=== PATIENT | male | born 1990 | race Caucasian/White ===

== ENCOUNTER 2017-06-04 13:33 | Emergency (ER) | payer BC ==
[~2017-06-04] VITALS: Ht 185.4 cm; Wt 89.0 kg
[~2017-06-04 13:33] MED LIST: ISOT40CA8 PO
[2017-06-04 13:37] VITALS: TEMP 36.8; Ht 185.4 cm; Wt 89.0 kg
--- NOTE | 2017-06-04 14:27 | DIAGNOSTIC IMAGING REPORT ---
CT OF THE ABDOMEN AND PELVIS WITHOUT CONTRAST CLINICAL HISTORY: Left flank pain. COMPARISON STUDY: KUB April 05, 2015 TECHNIQUE: Axial images of the abdomen and pelvis were obtained without IV contrast. Images were reviewed in the axial, sagittal, and coronal planes. A dose lowering technique was utilized adhering to the principles of ALARA. FINDINGS: Incidental note is made of pectus excavatum. A 5 mm proximal left ureteral calculus results in mild left hydronephrosis. Right kidney is malrotated. There is no right hydronephrosis. No additional urinary calculi are identified. A small gallstone is noted within the gallbladder without evidence for acute cholecystitis. There is no peripancreatic infiltration. Caliber of small and large bowel is normal. There is no ascites. The appendix is normal. No suspicious osseous lesion is identified. IMPRESSION: 1. 5 mm proximal left ureteral calculus which results in mild left hydronephrosis. 2. Cholelithiasis. Electronically signed by: Micah Barboza M.D. 06/04/2017 2:26 PM Dictated Date/Time: 06/04/2017 2:22 PM
[2017-06-04 14:32] LABS: BASO % 0.7 %; BASO ABS # 0.03 K/uL (0-0.2); COMPLETE YES; EOS % 1.4 %; HEMATOCRIT 45.1 % (42-52); LYMPH % 27.8 %; LYMPH ABS # 1.22 K/uL (1.2-3.4); MEAN CORPUSCULAR HEMOGLOBIN 32.6 pg (25-34); MEAN PLATELET VOLUME 9.4 fL (7.4-10.4); MONO % 12.3 %; NEUT % 57.8 %; PLATELET COUNT 205 K/uL (130-400); RED BLOOD COUNT 4.85 M/uL (4.7-6.1); WHITE BLOOD COUNT 4.39 K/uL (4.8-10.8)
[2017-06-04 14:33] LABS: URINE APPEARANCE CLOUDY (CLEAR); URINE BILIRUBIN NEG (NEG); URINE COLOR YELLOW; URINE EPITHELIAL CELL AUTO 0-5 /lpf (0-5); URINE NITRITE NEG (NEG); URINE SPECIFIC GRAVITY 1.024 (1.000-1.030); UROBILINOGEN NEG (NEG); ZZUR CULT IF INDIC CLEAN CATCH NO
[2017-06-04 14:35] LABS: MANUAL MICROSCOPIC REQUIRED? NO; REVIEW REQ? NO
[2017-06-04 14:50] LABS: BUN/CREATININE RATIO 14.2 (10-20); CALCIUM 9.3 mg/dl (8.5-10.1); CREATININE 1.01 mg/dl (0.60-1.40); POTASSIUM 3.8 mmol/L (3.5-5.1)
[2017-06-04] MEDS ORDERED: TAMS0.4C38 PO (15:13)
[2017-06-04] MEDS ORDERED: OXYC1TAB3 PO (15:13)
[2017-06-04 15:35] VITALS: BP 132/66; PULSE 68; O2SAT 98
--- NOTE | 2017-06-04 19:37 | EMERGENCY ROOM VISIT NOTE ---
History Report prepared by Rola: Flora Roman Under the Supervision of: Dr. Oscar Solis D.O. First contact with patient: 13:39 Chief Complaint: BACK PAIN Stated Complaint: BACK/KIDNEY PAIN History of Present Illness The patient is a 27 year old male who presents to the Emergency Room with complaints of persistent left lower back pain starting 6 days ago. The patient had a kidney stone 2 years ago and states that this pain feels like his previous kidney stone. The pain started 6 days ago and was intermittent at first. At 1100 today, it worsened significantly and started moving into his groin. Around 1300, the pain was unbearable and he decided to leave work to come to the ED. The pain is currently somewhat improved. It does not change with movement. He denies any groin swelling, urinary symptoms, nausea, vomiting , diarrhea, weakness, numbness in the legs or groin. He is able to walk. He works as a trooper. He denies any heavy lifting. He denies any previous abdominal surgeries. Source of History: patient Onset: 6 days ago Position: back (left lower) Quality: other (pain) Timing: other (persistent) Associated Symptoms: No nausea, No vomiting, No diarrhea, No urinary symptoms, No weakness, No numbness Note: Pt reports groin pain. Pt denies groin swelling. Review of Systems See HPI for pertinent positives & negatives. A total of 10 systems reviewed and were otherwise negative. Past Medical & Surgical Medical Problems: (1) Kidney stone Family History FH: heart disease Social History Smoking Status: Never Smoker Marital Status: in relationship Occupation Status: employed Current/Historical Medications Scheduled Tamsulosin Hcl (Flomax), 0.4 MG PO DAILY Scheduled PRN Oxycodone Immediate Rel Tab (Roxicodone Ir), 1-2 TAB PO Q4H PRN for Severe Pain Allergies Coded Allergies: Carbetapentane (Unverified Allergy, Mild, 10/09/11) Chlorpheniramine (Unverified Allergy, Mild, 10/09/11) Ephedrine (Unverified Allergy, Mild, 10/09/11) Phenylephrine (Unverified Allergy, Mild, 10/09/11) Physical Exam Vital Signs Date Time Temp Pulse Resp B/P (MAP) Pulse Ox O2 Delivery O2 Flow Rate FiO2 06/04/17 15:35 68 16 132/66 98 Room Air 06/04/17 13:37 36.8 81 18 150/94 99 Room Air Physical Exam GENERAL: Sitting on edge of bed, alert, well appearing, well nourished, no distress, non-toxic EYE EXAM: normal conjunctiva. OROPHARYNX: no exudate, no erythema, lips, buccal mucosa, and tongue normal and mucous membranes are moist NECK: supple, no nuchal rigidity, no adenopathy, non-tender LUNGS: Clear to auscultation. Normal chest wall mechanics HEART: no murmurs, S1 normal and S2 normal ABDOMEN: abdomen soft, non-tender, normo-active bowel sounds, no masses, no rebound or guarding. BACK: Back is symmetrical on inspection and there is no deformity, no midline tenderness, no CVA tenderness. SKIN: no rashes and no bruising UPPER EXTREMITIES: upper extremities are grossly normal. LOWER EXTREMITIES: No pitting edema. NEURO EXAM: Normal sensorium, cranial nerves II-XII grossly intact, normal speech, no gross weakness of arms, no gross weakness of legs. Ambulating without difficulty. Medical Decision & Procedures ER Provider Diagnostic Interpretation: Radiology results as stated below per my review and the radiologist's interpretation: CT OF THE ABDOMEN AND PELVIS WITHOUT CONTRAST CLINICAL HISTORY: Left flank pain. COMPARISON STUDY: KUB April 05, 2015 TECHNIQUE: Axial images of the abdomen and pelvis were obtained without IV contrast. Images were reviewed in the axial, sagittal, and coronal planes. A dose lowering technique was utilized adhering to the principles of ALARA. FINDINGS: Incidental note is made of pectus excavatum. A 5 mm proximal left ureteral calculus results in mild left hydronephrosis. Right kidney is malrotated. There is no right hydronephrosis. No additional urinary calculi are identified. A small gallstone is noted within the gallbladder without evidence for acute cholecystitis. There is no peripancreatic infiltration. Caliber of small and large bowel is normal. There is no ascites. The appendix is normal. No suspicious osseous lesion is identified. IMPRESSION: 1. 5 mm proximal left ureteral calculus which results in mild left hydronephrosis. 2. Cholelithiasis. Electronically signed by: Micah Barboza M.D. 06/04/2017 2:26 PM Dictated Date/Time: 06/04/2017 2:22 PM Laboratory Results 06/04/17 14:05 Red Blood Count 4.85, Mean Corpuscular Volume 93.0, Mean Corpuscular Hemoglobin 32.6, Mean Corpuscular Hemoglobin Concent 35.0, Mean Platelet Volume 9.4, Neutrophils (%) (Auto) 57.8, Lymphocytes (%) (Auto) 27.8, Monocytes (%) (Auto) 12.3, Eosinophils (%) (Auto) 1.4, Basophils (%) (Auto) 0.7, Neutrophils # (Auto ) 2.54, Lymphocytes # (Auto) 1.22, Monocytes # (Auto) 0.54, Eosinophils # (Auto ) 0.06, Basophils # (Auto) 0.03 06/04/17 14:05 Test 06/04/17 14:05 White Blood Count 4.39 K/uL (4.8-10.8) Red Blood Count 4.85 M/uL (4.7-6.1) Hemoglobin 15.8 g/dL (14.0-18.0) Hematocrit 45.1 % (42-52) Mean Corpuscular Volume 93.0 fL (80-100) Mean Corpuscular Hemoglobin 32.6 pg (25-34) Mean Corpuscular Hemoglobin Concent 35.0 g/dl (32-36) Platelet Count 205 K/uL (130-400) Mean Platelet Volume 9.4 fL (7.4-10.4) Neutrophils (%) (Auto) 57.8 % Lymphocytes (%) (Auto) 27.8 % Monocytes (%) (Auto) 12.3 % Eosinophils (%) (Auto) 1.4 % Basophils (%) (Auto) 0.7 % Neutrophils # (Auto) 2.54 K/uL (1.4-6.5) Lymphocytes # (Auto) 1.22 K/uL (1.2-3.4) Monocytes # (Auto) 0.54 K/uL (0.11-0.59) Eosinophils # (Auto) 0.06 K/uL (0-0.5) Basophils # (Auto) 0.03 K/uL (0-0.2) RDW Standard Deviation 46.7 fL (36.4-46.3) RDW Coefficient of Variation 13.7 % (11.5-14.5) Immature Granulocyte % (Auto) 0.0 % Immature Granulocyte # (Auto) 0.00 K/uL (0.00-0.02) Urine Color YELLOW Urine Appearance CLOUDY (CLEAR) Urine pH 7.0 (4.5-7.5) Urine Specific Dana 1.024 (1.000-1.030) Urine Protein NEG (NEG) Urine Glucose (UA) NEG (NEG) Urine Ketones NEG (NEG) Urine Occult Blood 2+ (NEG) Urine Nitrite NEG (NEG) Urine Bilirubin NEG (NEG) Urine Urobilinogen NEG (NEG) Urine Leukocyte Esterase NEG (NEG) Urine WBC (Auto) 1-5 /hpf (0-5) Urine RBC (Auto) >30 /hpf (0-4) Urine Hyaline Casts (Auto) 0 /lpf (0-5) Urine Epithelial Cells (Auto) 0-5 /lpf (0-5) Urine Bacteria (Auto) NEG (NEG) Anion Gap 5.0 mmol/L (3-11) Est Creatinine Clear Calc Drug Dose 123.0 ml/min Estimated GFR () 116.8 Estimated GFR (Non- 100.8 BUN/Creatinine Ratio 14.2 (10-20) Calcium Level 9.3 mg/dl (8.5-10.1) Total Bilirubin 0.7 mg/dl (0.2-1) Direct Bilirubin 0.1 mg/dl (0-0.2) Aspartate Amino Transf (AST/SGOT) 17 U/L (15-37) Alanine Aminotransferase (ALT/SGPT) 28 U/L (12-78) Alkaline Phosphatase 63 U/L (45-117) Total Protein 7.8 gm/dl (6.4-8.2) Albumin 4.7 gm/dl (3.4-5.0) Lipase 249 U/L (73-393) Laboratory results per my review. ED Course ED COURSE: Vital signs were reviewed and showed hypertension. The patients medical record was reviewed The above diagnostic studies were performed and reviewed. ED treatments and interventions as stated above. 1351: The patient was evaluated in room C12B. A complete history and physical examination was performed. 1433: I reevaluated the patient. He is doing well. 1504: Upon reevaluation, the patient is resting comfortably.I discussed my findings with the patient and he understands and agrees with the treatment plan. Based on the patients age, coexisting illnesses, exam and lab findings the decision to treat as an outpatient was made. The patient remained stable while under my care. The patient appeared well at the time of discharge. Medical Decision Differential diagnoses includes but is not limited to lumbar radiculopathy, muscle strain, facture, cauda equina, mass, and disc herniation. Patient is a 27-year-old male who presents to ER for left lower back pain radiating into his groin which started Friday and has been coming going. He notes it's been significantly worse with past 24 hours. Does have a previous history of 1 kidney stone. CBC all BMP, LFTs, bilirubin lipase is unremarkable. UA shows hematuria. CT shows a 5 mm proximal stone with mild hydronephrosis. Patient declined pain medications. He was updated bedside. He was discharged with Flomax and OxyIR. He will follow-up with his urologist. Discussed with Pt concerning signs and symptoms to watch out for. Pt was instructed to follow up with their PCP and discussed with the patient their option to return to the ED at anytime for persistent or worsening symptoms. The appropriate anticipatory guidance and out-patient management, including indications for return to the emergency department, were explained at length to the patient and understood. Medication Reconcilliation Current Medication List: was personally reviewed by me Blood Pressure Screening Patient's blood pressure: Elevated blood pressure Blood pressure disposition: Elevated BP felt to be situational Impression Primary Impression: Renal colic Scribe Attestation The scribe's documentation has been prepared under my direction and personally reviewed by me in its entirety. I confirm that the note above accurately reflects all work, treatment, procedures, and medical decision making performed by me. Departure Information Dispostion Home / Self-Care Prescriptions Oxycodone Immediate Rel Tab (ROXICODONE IR) 5 Mg Tab 1-2 TAB PO Q4H Y for Severe Pain, #20 TAB Prov: Oscar Solis, DO 06/04/17 Tamsulosin Hcl (FLOMAX) 0.4 Mg Cap 0.4 MG PO DAILY, #10 CAP Prov: Oscar Solis, DO 06/04/17 Referrals No Doctor, Assigned (PCP) Forms HOME CARE DOCUMENTATION FORM, IMPORTANT VISIT INFORMATION Patient Instructions ED Stone Renal W Colic, My [facility] Additional Instructions Please follow up with your primary care doctor with in the next 24 hours. Any worsening of your symptoms, please return to the ED immediately. This includes any fevers greater than 100.4, worsening pain, chest pain, shortness breath, persistent nausea, vomiting, unable to eat or drink, or any other concerning signs or symptoms from your standpoint. You were also given a prescription for a narcotic. While taking this medication you should also not drive, operate machinery and or work. Please do NOT drive, operate machinery or work for the next 12hrs after taking medication. Please follow-up with urology.
== END 2017-06-04 15:54 | disposition home or self-care (01) ==
LOC: C.EDB 13:34 → C.EDC 15:54
DX: N23 Unspecified renal colic (principal)

== ENCOUNTER → 2017-06-30 | Outpatient (CLI) | payer BC ==
[~2017-06-30] MED LIST changes: -ISOT40CA8 PO; +TAMS0.4C38 PO
--- NOTE | 2017-06-30 12:35 | DIAGNOSTIC IMAGING REPORT ---
KUB CLINICAL HISTORY: Ureteral stone. FINDINGS: 3 AP supine abdominal radiographs are correlated with abdominal CT dated 06/04/2017. There is a 6 mm obstructing calculus in the mid left ureter projecting just above the L4 transverse process. This likely corresponds to the obstructing ureteral stone seen on the 06/04/2017 CT scan. No additional calcifications are seen projecting over either kidney or along the course of the right ureter. The right renal shadow is largely obscured by overlying colonic contents. There is a nonobstructed abdominal bowel gas pattern noting moderate colonic fecal retention. The bony structures appear intact. IMPRESSION: There is a 6 mm left ureteral calculus projecting over the transverse process of L4. Electronically signed by: Min Cano M.D. 06/30/2017 12:33 PM Dictated Date/Time: 06/30/2017 12:32 PM
== END | disposition home or self-care (01) ==
LOC: C.RAD1850 12:14
PROVIDERS: ATTEND Urology
DX: N20.1 Calculus of ureter (principal)

== ENCOUNTER → 2017-07-04 | Day surgery (SDC) | payer BC ==
[2017-06-23 14:04] VITALS: Ht 185.4 cm; Wt 86.4 kg
--- NOTE | 2017-07-01 14:26 | DIAGNOSTIC IMAGING REPORT ---
TWO VIEW CHEST CLINICAL HISTORY: Nephrolithiasis. FINDINGS: PA and lateral chest radiographs are compared to study dated 05/27/2000 and. The cardiomediastinal silhouette is unremarkable. The lungs and pleural spaces are clear. There is no pneumothorax. The bony thorax appears intact. There is thoracic levorotoscoliosis. IMPRESSION: No active disease in the chest. Electronically signed by: Min Cano M.D. 07/01/2017 2:25 PM Dictated Date/Time: 07/01/2017 2:24 PM
[~2017-07-04] VITALS: Ht 185.4 cm; Wt 86.4 kg
[~2017-07-04] MED LIST changes: +ATROPINE SULFATE 0.1 MG/ML 5ML SYR IV PRN; +CIPROFLOXACIN 400MG / D5W IV SCH; +DEXAMETHASONE SOD INJ 4 MG/ML VIAL ONE; +EpHEDrine SULFATE INJ 50 MG/ML AMP IV PRN; +FENTANYL CITRATE INJ 50 MCG/1 ML 2 ML VIAL IV PRN; +FENTANYL CITRATE INJ 50 MCG/1 ML 2 ML VIAL ONE; +LACTATED RINGER'S 1000ML 1,000 ML IV SCH; +LIDOCAINE HCL 2% 2 ML VIAL (20MG/ML) ONE; +MIDAZOLAM HCL 1 MG/ML 2ML VIAL ONE; +ONDANSETRON INJ 2 MG/ML 2 ML VIAL IV PRN; +ONDANSETRON INJ 2 MG/ML 2 ML VIAL ONE; +OXYC-57 PO; +OXYCODONE/ACETAMINOPHEN 5-325 TAB PO PRN; +PROMETHAZINE HCL INJ 6.25 MG in SODIUM CHLORIDE 0.9% 50ML 50 ML IV PRN; +PROPOFOL IV EMULSION 10 MG/ML 20 ML VIAL IV ONE
--- NOTE | 2017-07-04 12:18 | History & Physical Bridge Note ---
H&P Re-Evaluation Bridge Note: I have examined the patient, reviewed the History & Physical and in the interval since the performance of the History & Physical I have noted the following changes of clinical significance: No changes noted
--- NOTE | 2017-07-04 13:09 | Discharge Instructions-SurgCtr ---
Discharge Instructions Date of Service Jul 04, 2017. Visit Reason for Visit: Stones Discharge Discharge Diagnosis / Problem: STONES Discharge Goals Goal(s): Therapeutic intervention Activity Recommendations Activity Limitations: resume your previous activity (TAKE IT EASY TODAY) Exercise/Sports Limitations: rest today May Resume Sexual Activity: when tolerated Shower/Bathe: no limitations Driving or Machine Use: resume 1 day after discharge Anesthesia . Post Anesthesia Instructions: If you have had General Anesthesia or IV Sedation: * Do not drive today. * Resume driving when surgeon permits. * Do not make important decisions or sign legal documents today. * Call surgeon for: 1. Temperature elevations greater than 101 degrees F. 2. Uncontrollable pain. 3. Excessive bleeding. 4. Persistent nausea and vomiting. 5. Medication intolerance (nausea, vomiting or rash). * For nausea and vomiting use only clear liquids such as: tea, soda, bouillon until nausea subsides, then gradually increase diet as tolerated. * If you have any concerns or questions, call your surgeon's office. If physician is unavailable and it is an emergency, call 911 or go to the nearest emergency room. . Instructions / Follow-Up Instructions / Follow-Up MEDICATIONS: Resume previous medications unless instructed otherwise by your surgeon. Resume pre-[facility] medication except for aspirin, coumadin or other blood thinners. __ Toradol 10 mg every 6 hours for initial pain. __ Lortab 5 mg 1-2 every 4 hours for pain. _X_ Percocet 5 mg 1-2 every 4 hours for pain. __ Macrodantin 50 mg x 3 a day. __ Flomax 1 tab daily one half (1/2) hour after supper. SPECIAL CARE INSTRUCTIONS: 1. Get KUB (x-ray) _X_ day before or day of office visit and bring x-ray to office __ get x-ray 2 days before and tell office you are getting x-rays when you call for the appointment. 2. Strain ALL urine. 3. Please call if you have a fever, chills, severe pain, or constant dribbling of urine. 4. Office phone number . FOLLOW UP VISIT: Please call the office to schedule a follow-up appointment at . Diet Recommendations Home Diet: resume previous diet Pending Studies Studies pending at discharge: no Medical Emergencies . Who to Call and When: Medical Emergencies: If at any time you feel your situation is an emergency, please call 911 immediately. . Non-Emergent Contact Non-Emergency issues call your: Urologist Call Non-Emergent contact if: temperature is above 101.5, your pain is not controlled . . "Provider Documentation" section prepared by Bennett [employer]. . [place] Drug Monitoring Program Search Results: patient reviewed within database
--- NOTE | 2017-07-04 13:21 | [facility] Operative Report ---
Operative Report Operative Date Jul 04, 2017. Pre-Operative Diagnosis Left Ureteral stone Post-Operative Diagnosis Same as pre-op Procedure(s) Performed Left Ureteral Extracorporeal Shock Wave Lithotripsy Surgeon Lead Fire Protection Engineer Surgeon(s) None Estimated Blood Loss Zero Findings LEFT URETERAL STONE Specimens None Drains NONE Anesthesia GENERAL Complication(s) None Disposition Recovery Room / PACU Indications LEFT URETERAL STONE Description of Procedure Patient was identified in the preoperative holding area, appropriate informed consent was reviewed and completed and the patient was transported to the operating suite. Upon arrival appropriate preoperative antibiotics were administered and general anesthesia induced. The patient was placed in supine position and the stone was localized under fluoroscopy. A total of [_3000__] shocks were delivered to the stone. There appeared to be good fragmentation of the stone. Details of this procedure can be found on the [facility] information sheet. At the conclusion of the case the patient was extubated and taken to the PACU in stable condition. There were no complications. I attest to the content of the Intraoperative Record and any orders documented therein. Any exceptions are noted below.
--- NOTE | 2017-07-04 14:30 | Anesthesia Progress Nt - [facility] ---
Anesthesia Post Op Note Date & Time Jul 04, 2017 at 14:29 Vital Signs Pain Intensity: 4 Vital Signs Past 12 Hours Date Time Temp Pulse Resp B/P (MAP) Pulse Ox O2 Delivery O2 Flow Rate FiO2 07/04/17 14:11 59 12 07/04/17 14:11 59 12 100 07/04/17 14:10 36.6 65 10 113/71 100 Room Air 07/04/17 14:10 113/71 07/04/17 14:06 63 14 07/04/17 14:06 64 14 100 07/04/17 14:05 117/72 07/04/17 14:01 72 16 07/04/17 14:01 80 16 97 07/04/17 14:00 115/72 07/04/17 13:56 61 14 07/04/17 13:56 62 14 100 07/04/17 13:55 114/70 07/04/17 13:53 68 19 100 07/04/17 13:53 67 19 07/04/17 13:50 117/69 07/04/17 13:48 36.6 66 16 121/73 100 Mask 6 07/04/17 13:48 67 07/04/17 13:48 66 121/73 100 07/04/17 10:45 36.4 72 16 131/77 (95) 99 Room Air Notes Mental Status: alert / awake / arousable, participated in evaluation Pt Amnestic to Procedure: Yes Nausea / Vomiting: adequately controlled Pain: adequately controlled Airway Patency, RR, SpO2: stable & adequate BP & HR: stable & adequate Hydration State: stable & adequate Anesthetic Complications: no major complications apparent
[2017-07-04 15:15] VITALS: BP 110/70; PULSE 52; TEMP 36.6; O2SAT 100
--- NOTE | 2017-07-04 15:42 | Anesthesia Progress Nt - [facility] ---
Anesthesia Post Op Note Date & Time Jul 04, 2017 at 15:38 Vital Signs Pain Intensity: 8.0 Vital Signs Past 12 Hours Date Time Temp Pulse Resp B/P (MAP) Pulse Ox O2 Delivery O2 Flow Rate FiO2 07/04/17 15:15 52 16 110/70 (83) 100 Room Air 07/04/17 14:48 69 16 114/75 (88) 99 Room Air 07/04/17 14:11 59 12 07/04/17 14:11 59 12 100 07/04/17 14:10 36.6 65 10 113/71 100 Room Air 07/04/17 14:10 113/71 07/04/17 14:06 63 14 07/04/17 14:06 64 14 100 07/04/17 14:05 117/72 07/04/17 14:01 72 16 07/04/17 14:01 80 16 97 07/04/17 14:00 115/72 07/04/17 13:56 61 14 07/04/17 13:56 62 14 100 07/04/17 13:55 114/70 07/04/17 13:53 68 19 100 07/04/17 13:53 67 19 07/04/17 13:50 117/69 07/04/17 13:48 36.6 66 16 121/73 100 Mask 6 07/04/17 13:48 67 07/04/17 13:48 66 121/73 100 07/04/17 10:45 36.4 72 16 131/77 (95) 99 Room Air Notes Mental Status: alert / awake / arousable, participated in evaluation Pt Amnestic to Procedure: Yes Nausea / Vomiting: adequately controlled Pain: adequately controlled Airway Patency, RR, SpO2: stable & adequate BP & HR: stable & adequate Hydration State: stable & adequate Anesthetic Complications: no major complications apparent pain difficult to manage with oral pain medications and also the patient did experience some nausea. he feels that this sensation is quite similar to the renal colic he had previously. I spoke with the patient that this is likely due to moving of stone fragments and may improve if they pass spontaneously as expected, but if not these may require cystoscopy. The patient was hesitant to make an ER visit if not absolutely necessary. I did speak with the patient regarding attempting to manage and pass this at home and he would like to try this first. If pain is uncontrolled, he will return to the ER. Dr Remy was in agreement with this plan.
== END | disposition home or self-care (01) ==
LOC: X.SURG 10:10
PROVIDERS: ATTEND Urology
DX: N20.1 Calculus of ureter (principal); N20.0 Calculus of kidney; Z98.818 Other dental procedure status; Z84.1 Family history of disorders of kidney and ureter; Z82.49 Family history of ischemic heart disease and other diseases of the circulatory system; Z83.3 Family history of diabetes mellitus

== ENCOUNTER → 2017-07-04 | Outpatient (CLI) | payer BC ==
[~2017-07-04] MED LIST changes: -ATROPINE SULFATE 0.1 MG/ML 5ML SYR IV PRN; -CIPROFLOXACIN 400MG / D5W IV SCH; -DEXAMETHASONE SOD INJ 4 MG/ML VIAL ONE; -EpHEDrine SULFATE INJ 50 MG/ML AMP IV PRN; -FENTANYL CITRATE INJ 50 MCG/1 ML 2 ML VIAL IV PRN; -FENTANYL CITRATE INJ 50 MCG/1 ML 2 ML VIAL ONE; -LACTATED RINGER'S 1000ML 1,000 ML IV SCH; -LIDOCAINE HCL 2% 2 ML VIAL (20MG/ML) ONE; -MIDAZOLAM HCL 1 MG/ML 2ML VIAL ONE; -ONDANSETRON INJ 2 MG/ML 2 ML VIAL IV PRN; -ONDANSETRON INJ 2 MG/ML 2 ML VIAL ONE; -OXYCODONE/ACETAMINOPHEN 5-325 TAB PO PRN; -PROMETHAZINE HCL INJ 6.25 MG in SODIUM CHLORIDE 0.9% 50ML 50 ML IV PRN; -PROPOFOL IV EMULSION 10 MG/ML 20 ML VIAL IV ONE
--- NOTE | 2017-07-04 10:14 | DIAGNOSTIC IMAGING REPORT ---
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 COMPARISON STUDY: 06/30/2017 FINDINGS: No change in the 4 mm calcification medially superior to the left lateral transverse process of L4. This shows no change in location compared to the prior study. No additional calcifications are identified. Nonobstructive bowel pattern. IMPRESSION: Unchanging 4 mm calcification adjacent to the left lateral transverse process of L4. The above report was generated using voice recognition software. It may contain grammatical, syntax or spelling errors. Electronically signed by: Miguel A Gallardo M.D. 07/04/2017 10:13 AM Dictated Date/Time: 07/04/2017 10:12 AM
== END | disposition home or self-care (01) ==
LOC: C.RAD1850 10:02
PROVIDERS: ATTEND Urology
DX: N20.0 Calculus of kidney (principal)

== ENCOUNTER → 2017-07-23 | Outpatient (CLI) | payer BC ==
--- NOTE | 2017-07-23 11:43 | DIAGNOSTIC IMAGING REPORT ---
KUB CLINICAL HISTORY: N20.0 LEFT KIDNEY STONE COMPARISON STUDY: 07/04/2017 FINDINGS: The renal shadows are partially obscured by overlying bowel gas and fecal material. There is a 4 mm opacity projected over the left L3 transverse process. It is unclear whether this represents a calculus, or overlying enteric contents. There is no pathologic bowel dilatation. There is a bone island within the right femoral head. IMPRESSION: 1. 4 mm opacity projected over the left L3 transverse process. Is unclear whether this represents a calculus or overlying enteric contents. Electronically signed by: Adan Parker M.D. 07/23/2017 11:42 AM Dictated Date/Time: 07/23/2017 11:40 AM
== END | disposition home or self-care (01) ==
LOC: C.RAD1850 11:29
PROVIDERS: ATTEND Urology
DX: N20.0 Calculus of kidney (principal)

== ENCOUNTER → 2017-07-25 | Outpatient (CLI) | payer BC | END | disposition home or self-care (01) | LOC: C.LABSPEC 10:40 | PROVIDERS: ATTEND Urology | DX: N20.0 Calculus of kidney (principal) ==

== ENCOUNTER → 2017-08-06 | Outpatient (CLI) | payer BC | END | disposition home or self-care (01) | LOC: C.LABBFT 10:23 | PROVIDERS: ATTEND Internal Medicine | DX: R10.9 Unspecified abdominal pain (principal) ==